=== PATIENT | female | born 1950 | race Caucasian/White ===

== ENCOUNTER 2020-10-10 22:20 | Inpatient (IN) | payer OTHER ==
[~2020-10-10] VITALS: Ht 165.1 cm; Wt 86.2 kg
[2020-10-10] MEDS ORDERED: ACID REDUCER20 M1 (23:29)
[2020-10-10] MEDS ORDERED: SIMVASTATIN20 MG (23:30)
[2020-10-10] MEDS ORDERED: FOSAMAX70 MG (23:30)
[2020-10-10] MEDS ORDERED: DURACHOL 3,7751 EACH (23:30)
[2020-10-17] MEDS ORDERED: DECADRON6 MG PO (10:20)
== END 2020-10-17 12:53 | disposition home or self-care (01) | DRG 177 ==
LOC: ER 22:20 → MEDJ 10-11 09:24 → MEDI 10-11 09:24 → MEDJ 10-17 12:53
PROVIDERS: ADMIT Internal Medicine; ATTEND Internal Medicine
PROC: 8E0ZXY6 Isolation (ICD-10-PCS; principal; 2020-10-11)
PROC: 4A12X4Z Monitoring of Cardiac Electrical Activity, External Approach (ICD-10-PCS; 2020-10-11)
PROC: 4A033R1 Measurement of Arterial Saturation, Peripheral, Percutaneous Approach (ICD-10-PCS; 2020-10-11)
PROC: 3E0F7GC Introduction of Other Therapeutic Substance into Respiratory Tract, Via Natural or Artificial Opening (ICD-10-PCS; 2020-10-11)
PROC: BB24ZZZ Computerized Tomography (CT Scan) of Bilateral Lungs (ICD-10-PCS; 2020-10-13)
DX: U07.1 COVID-19 (principal); J12.89 Other viral pneumonia; C49.5 Malignant neoplasm of connective and soft tissue of pelvis; K21.9 Gastro-esophageal reflux disease without esophagitis; R09.02 Hypoxemia